=== PATIENT | female | born 1980 | race African-American/Black ===

== ENCOUNTER 2019-11-02 15:27 | Emergency (ER) | payer OTHER ==
[~2019-11-02] VITALS: Ht 157.5 cm; Wt 77.1 kg
== END 2019-11-02 17:58 | disposition home or self-care (01) ==
LOC: ER 15:27
DX: R06.02 Shortness of breath (principal); F41.1 Generalized anxiety disorder

== ENCOUNTER 2023-01-21 10:14 | Outpatient (CLI) | payer OTHER | END 2023-01-21 10:31 | disposition home or self-care (01) | LOC: MRI 10:14 | PROVIDERS: ATTEND General Practice | DX: M25.532 Pain in left wrist (principal); R60.0 Localized edema | CPT/HCPCS: 73218 ==

== ENCOUNTER 2023-04-18 12:10 | Outpatient (CLI) | payer OTHER | END 2023-04-18 12:22 | disposition home or self-care (01) | LOC: MAMO-SONO 12:10 | PROVIDERS: ATTEND General Practice | DX: Z01.419 Encounter for gynecological examination (general) (routine) without abnormal findings (principal); R32 Unspecified urinary incontinence; Z12.31 Encounter for screening mammogram for malignant neoplasm of breast; N64.9 Disorder of breast, unspecified; Z12.39 Encounter for other screening for malignant neoplasm of breast ==